=== PATIENT | male | born 1970 | race Asian ===

== ENCOUNTER 2018-04-15 20:29 | Emergency (ER) | payer SELFPAY ==
[~2018-04-15] VITALS: Ht 170.2 cm; Wt 68.0 kg
[2018-04-15 20:41] VITALS: BP 128/90
--- NOTE | 2018-04-15 20:43 | NUR ---
TO [facility], JEFF BEE NOTED
--- NOTE | 2018-04-15 21:00 | NUR ---
47/M CAME IN W C/O LOWER BACK PAIN S/P LIFTING HEAVY OBJECT X 1 WEEK. DENIES FALLS, ANY OTHER INJURIES, DENIES PERIPHERAL NUMBNESS/TINGLING. +PMSC TO ALL EXTREMITIES. DENIES PMH, REPORTS TO HAVE TAKEN ADVIL THIS AM WITHOUT RELIEF
--- NOTE | 2018-04-15 21:00 | NUR ---
PT AURELIO'Riky TO ED BED 8, JORDANA SALAS AT [facility]
--- NOTE | 2018-04-15 21:48 | NUR ---
Patient discharged with v/s stable. Written and verbal after care instructions given and explained. Patient alert, oriented and verbalized understanding of instructions. Ambulatory with steady gait. All questions addressed prior to discharge. ID band removed. Patient advised to follow up with PMD. Rx of IBUPROFEN, NORCO, FLEXERIL given. Patient educated on indication of medication including possible reaction and side effects. Opportunity to ask questions provided and answered.
[2018-04-15 21:49] VITALS: BP 127/82
== END 2018-04-15 21:48 | disposition home or self-care (01) ==
LOC: MED 20:29
DX: S39.012A Strain of muscle, fascia and tendon of lower back, initial encounter (principal); X50.0XXA Overexertion from strenuous movement or load, initial encounter; Y93.89 Activity, other specified; Y92.098 Other place in other non-institutional residence as the place of occurrence of the external cause; Y99.8 Other external cause status
CPT/HCPCS: 99283